=== PATIENT | male | born 1995 | race Two or more races ===

== ENCOUNTER 2019-09-16 17:09 | Emergency (ER) | payer MEDICAID ==
[~2019-09-16] VITALS: Ht 175.3 cm; Wt 73.5 kg
[2019-09-16 20:18] VITALS: BP 138/74
[2019-09-16] MEDS ORDERED: AZITHROMYCIN 250 MG TAB PO ONE (20:30)
[2019-09-16] MEDS ORDERED: cefTRIAXone SODIUM 250 MG VL IM ONE (20:30)
[2019-09-16] MEDS ORDERED: LIDOCAINE 2% (LOCAL ANESTH.) PF 5ml SDV ONE (20:32)
[2019-09-16 20:37] LABS: Urine Bacteria NONE SEEN /hpf (None Seen); Urine Blood Negative /uL (Negative); Urine Mucus FEW (None Seen); Urine Specific Gravity 1.035 (1.001-1.035); Urine WBC 3 /hpf (0 - 3)
== END 2019-09-16 21:16 | disposition home or self-care (01) ==
LOC: ER 17:09
DX: Z20.2 Contact with and (suspected) exposure to infections with a predominantly sexual mode of transmission (principal)
CPT/HCPCS: 81001; 96372; 99283; J0696; J2001

== ENCOUNTER 2021-07-16 18:57 | Emergency (ER) | payer SELFPAY ==
[~2021-07-16] VITALS: Ht 172.7 cm; Wt 73.5 kg
[2021-07-16 19:19] VITALS: BP 157/102
== END 2021-07-16 21:15 ==
LOC: ER 18:57
DX: S50.311A Abrasion of right elbow, initial encounter (principal); S60.812A Abrasion of left wrist, initial encounter; S60.811A Abrasion of right wrist, initial encounter; X58.XXXA Exposure to other specified factors, initial encounter; Y93.89 Activity, other specified; Y92.89 Other specified places as the place of occurrence of the external cause; Y99.8 Other external cause status